=== PATIENT | male | born 1960 | race African-American/Black ===

== ENCOUNTER 2017-10-22 05:10 | Emergency (ER) | payer OTHER ==
[~2017-10-22] VITALS: Ht 180.3 cm; Wt 99.8 kg
[~2017-10-22 05:10] MED LIST: BACTRIM DS TAB1 EACH PO; BENADRYL25 MG PO; CLEOCIN HCL150 MG PO; LISINOPRIL20 MG PO; NORVASC5 MG PO; PREDNISONE50 MG PO; ULTRAM 50MG TAB50 MG PO
[2017-10-22 05:11] VITALS: BP 151/96
[2017-10-22] MEDS ORDERED: BUTALB-APAP-CA1 EACH PO ×2 (05:45→06:38)
== END 2017-10-22 06:45 | disposition home or self-care (01) ==
LOC: ER 05:10
DX: R51 Headache (principal); I10 Essential (primary) hypertension

== ENCOUNTER 2019-08-28 15:15 | Emergency (ER) | payer OTHER ==
[~2019-08-28] VITALS: Ht 177.8 cm; Wt 95.3 kg
[~2019-08-28 15:15] MED LIST changes: +BUTALB-APAP-CA1 EACH PO
[2019-08-28] MEDS ORDERED: TRUVADA1 EAC1 PO (15:20)
[2019-08-28 16:31] VITALS: BP 118/79
== END 2019-08-28 16:35 | disposition home or self-care (01) ==
LOC: ER 15:15
DX: R04.0 Epistaxis (principal); R09.81 Nasal congestion; I10 Essential (primary) hypertension